=== PATIENT | male | born 1960 | race Native Hawaiian/Other Pacific Islander ===

== ENCOUNTER 2017-06-03 12:10 | Outpatient (CLI) | payer BC ==
[~2017-06-03 12:10] MED LIST: LISI20TA24 PO; LOVASTATIN20 MG PO; PX ASPIRIN325 M1 PO
== END 2017-06-03 22:49 | disposition home or self-care (01) ==
LOC: LAB 12:10
DX: D64.89 Other specified anemias (principal)
CPT/HCPCS: 85014; 85018

== ENCOUNTER 2017-06-12 13:22 | Outpatient (CLI) | payer BC | END 2017-06-12 21:19 | disposition home or self-care (01) | LOC: LAB 13:22 | DX: D64.89 Other specified anemias (principal) | CPT/HCPCS: 85014; 85018 ==

== ENCOUNTER 2017-06-17 13:45 | Outpatient (CLI) | payer BC | END 2017-06-17 22:06 | disposition home or self-care (01) | LOC: LAB 13:45 | DX: D64.89 Other specified anemias (principal) | CPT/HCPCS: 85018 ==

== ENCOUNTER 2017-07-15 13:33 | Outpatient (CLI) | payer BC | END 2017-07-15 23:37 | disposition home or self-care (01) | LOC: LAB 13:33 | DX: D64.89 Other specified anemias (principal) | CPT/HCPCS: 85018 ==

== ENCOUNTER 2017-12-31 14:54 | Outpatient (CLI) | payer OTHER, BC | END 2017-12-31 21:53 | disposition home or self-care (01) | LOC: LAB 14:54 | DX: E87.5 Hyperkalemia (principal) | CPT/HCPCS: 84132 ==

== ENCOUNTER 2018-01-17 15:57 | Outpatient (CLI) | payer OTHER, BC ==
[2018-01-18 08:01] LABS: POTASSIUM 4.1 mmol/L (3.6-5.2)
== END 2018-01-17 19:55 | disposition home or self-care (01) ==
LOC: LAB 15:57
PROVIDERS: Internal Medicine Nephrology
DX: E87.5 Hyperkalemia (principal)
CPT/HCPCS: 82565; 84132; 84520

== ENCOUNTER 2018-01-24 15:40 | Outpatient (CLI) | payer OTHER, BC ==
[2018-01-24 16:48] LABS: POTASSIUM 2.8 mmol/L (3.6-5.2)
== END 2018-01-24 22:35 | disposition home or self-care (01) ==
LOC: LAB 15:40
PROVIDERS: Internal Medicine Nephrology
DX: E87.5 Hyperkalemia (principal)
CPT/HCPCS: 82565; 84132; 84520

== ENCOUNTER 2018-12-23 13:52 | Inpatient (IN) | payer OTHER ==
[~2018-12-23] VITALS: Ht 182.9 cm; Wt 84.0 kg
[2018-12-23 20:00] VITALS: BP 153/66; TEMP 98.4
[2018-12-23 20:38] VITALS: BP 153/66; TEMP 98.4; Ht 182.9 cm; Wt 84.0 kg
[2018-12-24 08:00] VITALS: BP 157/65; TEMP 96.5
[2018-12-24 20:00] VITALS: BP 142/59; TEMP 99.1
[2018-12-25 08:00] VITALS: BP 154/62; TEMP 98.6
[2018-12-25 19:41] VITALS: BP 168/66; TEMP 98.9
[2018-12-25 23:57] VITALS: BP 125/58; TEMP 97.8
[2018-12-26 04:00] VITALS: BP 137/59; TEMP 97.9
[2018-12-26 08:00] VITALS: BP 136/53; TEMP 99.8
[2018-12-26 13:09] VITALS: BP 141/64; TEMP 100.4
[2018-12-26 16:00] VITALS: BP 145/55; TEMP 99.6
[2018-12-26 20:00] VITALS: BP 148/60; TEMP 100.8
[2018-12-27] VITALS: BP 129/47; TEMP 97.5
[2018-12-27 03:58] VITALS: BP 125/47; TEMP 101.4
[2018-12-27 08:00] VITALS: BP 163/47; TEMP 101.5
[2018-12-27 16:00] VITALS: BP 93/58; TEMP 102
== END 2018-12-27 16:25 | disposition expired | DRG 291 ==
LOC: MED/SURG 13:52
PROVIDERS: ADMIT Internal Medicine
DX: I13.2 Hypertensive heart and chronic kidney disease with heart failure and with stage 5 chronic kidney disease, or end stage renal disease (principal); A41.89 Other specified sepsis; N18.6 End stage renal disease; E11.22 Type 2 diabetes mellitus with diabetic chronic kidney disease; Z89.611 Acquired absence of right leg above knee
CPT/HCPCS: J2060; J2270; J7060